=== PATIENT | male | born 1950 | race Caucasian/White ===

== ENCOUNTER 2024-02-01 06:02 | Day surgery (SDC) | payer MEDICARE, OTHER, SELFPAY ==
[2024-02-01] VITALS (17 sets, daily range): BP systolic 97–139; BP diastolic 56–100; BMI 38.2
--- NOTE | 2024-02-01 10:05 | ITS.CL.PACE ---
Pressure Welder - Pacemaker Implant
Pacemaker Implant
Procedure Report:
PACEMAKER IMPLANT REPORT
Primary Care Physician: Dr. Kathleen Mansfield
Primary Hide And Skin Colerer: Dr. Guille Ramírez
Date of Procedure: February 01, 2000
Procedure:
1: Dual chamber pacemaker implantation with fluoroscopic guidance
Indication/Diagnosis:
1: Non-reversible symptomatic bradycardia due to: third degree AV block.
History: The patient is a 73-year-old man with with a complex past medical history including severe COPD who is referred for pacemaker placement in the setting of intermittent third-degree AV block while awake.
Antibiotic: Ancef 3 g IV
Sedation: Conscious sedation as per anesthesia staff
Description of Procedure: After informed consent was obtained, 'time out' was called and confirmed, the patient was prepped and draped in a sterile fashion. Lidocaine with epinephrine was used for local anesthesia. Central venous access was
obtained via subclavian venopuncture after a venogram from the left arm confirmed subclavian patency. An incision was made along the left chest and a pre-pectoral pocket was formed. Using a Seldinger technique and peel-away sheaths, the pacing
leads were placed under fluoroscopic guidance. Once testing (see below) showed adequate and stable function, the leads were secured using the suture sleeves. The pocket was liberally irrigated with antibiotic solution. The leads were connected to
the generator header and the leads and generator were placed within the pocket. Fluoroscopy confirmed stable lead position. The pocket was closed in the typical fashion.
IMPLANTS:
Company: [employer] [id number], SN: [id number] left Pectoral
RA: Medtronic Model 5076�52, SN: [id number], RAA
RV: Medtronic Model 5076�58, SN: [id number], RV apical septum
DEVICE TESTING:
Sensing: RA 2.6 mV, RV 3.8 mV
Capture: RA 0.75 V@0.5ms, RV 1.0 V@0.5ms
Ohms: RA 580, RV 580
FINAL PROGRAMMING
Jaswant Pacing: DDD 60-130ppm
Complications: None.
Fluoroscopy Time (min): 20.3
Radiation Dose (mGy): 244
DAP (Gy.cm2): 30
CONCLUSIONS:
1: Successful implant of dual chamber permanent pacemaker
RECOMMENDATIONS:
1. Routine post-op care (tele, CXR, arm sling).
2. In-Office wound check within 7 days.
3. Office interrogation within 4 weeks.
Copy to: Dr. Kathleen Mansfield
--- NOTE | 2024-02-01 13:35 | PTCARENOTE ---
Patient received from [facility]] s/p ppm implantation. VSS - AV paced via cm, SaO2 @ 97% on 4lnc (pt's home O2 dose). LCW site w/scant drainage noted, unchanged from post procedure. Patient denies pain. Assisted oob to bathroom, voided. Patient updated to
plan of care for the remainder of the day, in agreement. See work list for full assessment and interventions performed.
[2024-02-01] MEDS: VENTOLIN NEBULES 2.5 MG INH ×2 (15:30→19:18)
--- NOTE | 2024-02-01 15:57 | CM ---
CM following for DC planning needs.
Met w/ patient at bedside to complete initial assessment. Pt. resides w/ spouse in a private home. He is functionally indep. w/ use of a SPC.
Antic. DC plan is for home, no needs.
CM to follow.
[2024-02-01] MEDS: ANCEF 5 IV ×2 (16:21→23:11)
[2024-02-01] MEDS: WELLBUTRIN XL (24 hour extended release) 300 MG PO (17:57)
[2024-02-01] MEDS: ROCALTROL 0.25 MCG PO (17:57)
[2024-02-01] MEDS: LIPITOR 20 MG PO (17:58)
[2024-02-01] MEDS: ZESTRIL 10 MG PO (17:58)
[2024-02-01] MEDS: REMERON 15 MG PO (17:58)
[2024-02-01] MEDS: PULMICORT 0.5 MG INH (19:18)
[2024-02-01] MEDS: TYLENOL 650 MG PO (20:52)
[2024-02-01] MEDS: NEURONTIN 600 MG PO (20:52)
--- NOTE | 2024-02-01 22:34 | PTCARENOTE ---
Left chest wall dressing in place with 3 small drainage spots present. Pt without complaints of pain at site. Sling in place pt needs frequent reminders to keep in place. reminded of the post op extremity restrictions- pt verbalized understanding.
HARDWARE INSTALLATION COORDINATOR on the monitor.
[2024-02-02 04:09] VITALS: BP 130/77
[2024-02-02 04:39] LABS: Hematocrit 35.4 % (39.0-52.0); Hemoglobin 10.9 g/dL (13.0-18.0); Mean Corp Hgb Conc. 30.8 g/dL (33.0-37.0); Mean Corpuscular Hgb 29.1 pg (27.0-31.0); Mean Corpuscular Volume 94.4 fL (80.0-94.0); Mean Platelet Volume 8.9 fL (7.4-10.4); Platelet Count 129 10^3/uL (130-400); Red Blood Cell Count 3.75 10^6/uL (4.70-6.10); Red Cell Dist. Width 14.5 % (11.5-14.5); White Blood Cell Count 7.5 10^3/uL (4.8-10.8)
[2024-02-02 05:04] LABS: Blood Urea Nitrogen 43 mg/dl (9-20); Calcium 9.1 mg/dl (8.4-10.2); Carbon Dioxide 31 mmol/L (22-30); Chloride 105 mmol/L (98-107); Estimated Creatinine Clearance 46 ml/min; Glucose 105 mg/dl (70-99); Potassium 4.8 mmol/L (3.5-5.1); Sodium 144 mmol/L (135-145); eGFR 44.65
[2024-02-02 05:51] LABS: Hepatitis C Antibody Negative (Negative)
--- NOTE | 2024-02-02 06:10 | PTCARENOTE ---
[facility]- completed
[2024-02-02] MEDS: PULMICORT 0.5 MG INH (07:25)
[2024-02-02] MEDS: SPIRIVA RESPIMAT 2.5 MCG 2 PUFF INH (07:25)
[2024-02-02] MEDS: VENTOLIN NEBULES INH ×2 (07:27→11:09)
--- NOTE | 2024-02-02 07:28 | W.PN.CARDCBS ---
Addendum entered and electronically signed by En Glass MD 02/02/24 16:59:
I saw and examined the patient.
The Automotive Parts Counter Person's note was reviewed and I agree with the note.
Comment: Briefly, 73-year-old man presenting with symptomatic bradycardia and intermittent third-degree heart block who underwent permanent pacemaker implantation on 02/02/[address] Ascencio
Asymptomatic from a cardiovascular perspective today
Pacemaker site clean dry and intact with Steri-Strips
Telemetry reviewed showing AV pacing
Stable for discharge from my perspective
He has incision check in the [facility] office tomorrow and should follow-up with his primary weaver hand loom Dr. Ramírez going forward
Original Note:
Today's Communication / Plan
-
stable for d/c home
Impression / Plan
-
Primary Care Physician: Dr. Kathleen Mansfield
Primary Captain Assistant: Dr. Guille Ramírez
Impression:
Symptomatic bradycardia with intermittent 3rd degree HB
post DC PPM Medtronic 02/01
Severe COPD on home O2 4L
HTN
HLD
CKD3b
Chronic cor pulmonale
Pulmonary HTN
Cardiomyopathy
Thoracic aortic aneurysm 4.3cm
Plan:
post PPM site with scant old drainage, no HT
tele AV dual paced
CXR no PTX, ,leads in good position
HTN continue lisinopril
Activity restrictions reviewed
inc check Tuesday 11am
stable for d/c home today
Progress Note - Captain Assistant
Subjective
Date of Service: February 02, 2024
denies cp, mild inc pain relief with tylenol
Objective
Labs:
02/02/24 04:17
02/02/24 04:17
Labs
Hgb 10.9 g/dL (13.0-18.0) L 02/02/24 04:17
Hct 35.4 % (39.0-52.0) L 02/02/24 04:17
Plt Count 129 10^3/uL (130-400) L 02/02/24 04:17
Sodium 144 mmol/L (135-145) 02/02/24 04:17
Potassium 4.8 mmol/L (3.5-5.1) 02/02/24 04:17
BUN 43 mg/dl (9-20) H 02/02/24 04:17
Creatinine 1.6 mg/dL (0.7-1.3) H 02/02/24 04:17
Glucose 105 mg/dl (70-99) H 02/02/24 04:17
Vital Signs and I&O:
Vital Signs
Temp Pulse Resp BP Pulse Ox
98.1 F 60 20 130/77 97
02/02/24 04:10 02/02/24 07:00 02/02/24 04:10 02/02/24 04:09 02/02/24 04:10
Vital Signs
Temp Pulse Resp BP Pulse Ox
98.1 F 60 20 130/77 97
02/02/24 04:10 02/02/24 07:00 02/02/24 04:10 02/02/24 04:09 02/02/24 04:10
Intake & Output
01/31/24 02/01/24 02/02/24 02/03/24
06:59 06:59 06:59 06:59
Intake Total 730 / 730
Balance 730 / 730
Physical Exam
Physical Exam
NAD, AOX3
S1, S2, RRR
diminished t/o, faint exp wheeze
SNTND bsx4, obese
L CW dressing with some old drainage, steri strips intact, trace ecchymosis
[2024-02-02 07:37] VITALS: BP 134/71
[2024-02-02] MEDS: NEURONTIN 600 MG PO (08:40)
--- NOTE | 2024-02-02 10:08 | PTCARENOTE ---
Pt sitting OOB in chair, A,A+O x3, offers no complaints, L chest wall incision approximated with steri-strips intact D+I. Pt is AV paced on monitoring engineer.
[2024-02-02 11:46] VITALS: BP 121/76
--- NOTE | 2024-02-02 15:43 | W.DS.TRANS ---
DC Summary - Pbx Teacher
-
Discharge Instructions:
Discharge Diagnosis/Procedures Pacemaker implant
Diet Low Cholesterol
Driving Restrictions No driving for 1 week
Bathing Restrictions OK to Shower
Instructions:
Stand-Alone Forms: DC Inst - Implanted Device
Changes to Home Medications: No
Discharge Medications:
DC Medications w/original date entered in [facility]
albuterol sulfate 2.5 mg/3 mL (0.083 %) solution for nebulization 2.5 mg inhalation Q4H PRN copd 02/01/24
arformoterol 15 mcg/2 mL solution for nebulization 2 ml inhalation BID Lung/Breathing Issues 02/01/24
ascorbic acid (vitamin C) 500 mg capsule,extended release 500 mg PO DAILY Supplement 02/01/24
budesonide 0.5 mg/2 mL suspension for nebulization 0.5 mg inhalation BID Lung/Breathing Issues 02/01/24
bupropion HCl 300 mg 24 hr tablet, extended release 300 mg PO QPM Mental Health/Anxiety 02/01/24
calcitriol 0.25 mcg capsule 0.25 mcg PO QPM 02/01/24
gabapentin 600 mg tablet 600 mg PO BID 02/01/24
lisinopril 10 mg tablet 10 mg PO QPM Blood Pressure 02/01/24
mirtazapine 15 mg tablet 15 mg PO QPM Mental Health/Anxiety 02/01/24
quercetin 500 mg capsule 500 mg PO QPM 02/01/24
revefenacin 175 mcg/3 mL solution for nebulization (Yupelri) 175 mcg inhalation QPM 02/01/24
simvastatin 40 mg tablet 40 mg PO QPM High Cholesterol 02/01/24
tamsulosin 0.4 mg capsule 0.4 mg PO BID Urinary Issue 02/01/24
torsemide 20 mg tablet 20 mg PO QPM Fluid Retention/Swelling 02/01/24
zinc 50 mg capsule 50 mg PO QPM Supplement 02/01/24
Home Medication Changes
Pending Results: No
== END 2024-02-02 13:48 | disposition home or self-care (01) ==
LOC: CATH 06:02
PROVIDERS: Nurse Practitioner; ATTENDING PHYSICIAN Internal Medicine Interventional Cardiology; FAMILY PHYSICIAN Family Medicine; OTHER PHYSICIAN Internal Medicine Cardiovascular Disease
DX: I44.2 Atrioventricular block, complete (principal); J44.9 Chronic obstructive pulmonary disease, unspecified; Z99.81 Dependence on supplemental oxygen; I12.9 Hypertensive chronic kidney disease with stage 1 through stage 4 chronic kidney disease, or unspecified chronic kidney disease; E78.5 Hyperlipidemia, unspecified; I27.81 Cor pulmonale (chronic); I27.29 Other secondary pulmonary hypertension; I42.9 Cardiomyopathy, unspecified; Z79.899 Other long term (current) drug therapy; R00.1 Bradycardia, unspecified; R42 Dizziness and giddiness
CPT/HCPCS: 33208; 71045; 80048; 85027; 86803; 93005; 94640; C1769; C1785; C1887; C1892; C1898